=== PATIENT | male | born 1980 | race Caucasian/White ===

== ENCOUNTER 2017-02-06 10:00 | Emergency (ER) | payer MEDICAID ==
[~2017-02-06] VITALS: Ht 177.8 cm; Wt 78.4 kg
[2017-02-06 10:03] VITALS: BP 116/82
[2017-02-06] MEDS ORDERED: KETOROLAC 30 MG/1 ML ONE (10:39)
[2017-02-06] MEDS ORDERED: KETOROLAC 30 MG/1 ML IM ONE (11:00)
[2017-02-06] MEDS ORDERED: SODIUM CHLORIDE 0.9% 1,000ML IVBOLUS ONE (11:00)
[2017-02-06] MEDS ORDERED: MECLIZINE CHEWABLE 25 MG TAB PO ONE (11:00)
[2017-02-06] MEDS ORDERED: ONDANSETRON ODT 4 MG PO ONE (11:00)
[2017-02-06 11:09] LABS: HEMATOCRIT 47.4 % (39.2-51.8); HEMOGLOBIN 15.6 g/dL (13.7-18.0); WHITE BLOOD COUNT 16.4 x10^3/uL (3.4-10)
[2017-02-06 11:24] LABS: BLOOD UREA NITROGEN 7 mg/dL (7-18)
[2017-02-06 11:28] LABS: ACETAMINOPHEN 26 mcg/mL (10-30); ASPARTATE AMINO TRANSFERASE 29 U/L (15-37)
== END 2017-02-06 11:58 | disposition home or self-care (01) ==
LOC: ED 11:52
DX: K02.9 Dental caries, unspecified (principal); R11.2 Nausea with vomiting, unspecified
CPT/HCPCS: 36415; 70450; 80053; 80307; 85025; 99285; J7030

== ENCOUNTER 2018-05-24 15:47 | Emergency (ER) | payer MEDICAID ==
[~2018-05-24] VITALS: Ht 177.8 cm; Wt 83.3 kg
[2018-05-24 16:16] VITALS: BP 138/87
[2018-05-24 17:47] LABS: RAPID INFLUENZA A Negative (Negative); RAPID INFLUENZA B Negative (Negative)
== END 2018-05-24 18:05 | disposition home or self-care (01) ==
LOC: ED 17:45
DX: J06.9 Acute upper respiratory infection, unspecified (principal); R11.10 Vomiting, unspecified
CPT/HCPCS: 71046; 87400; 99284